=== PATIENT | female | born 1995 | race Two or more races ===

== ENCOUNTER 2018-09-20 10:21 | Emergency (ER) | payer OTHER ==
--- NOTE | 2018-09-20 11:19 | XRAY Report ---
Reason: Trauma Procedure Date: 09/20/2018 Accession Number: [id number] / [id number] Procedure: XR - Wrist 4 View LT CPT Code: FULL RESULT: EXAM: LEFT WRIST RADIOGRAPHY EXAM DATE: 09/20/2018 11:02 AM. CLINICAL HISTORY: Trauma., Pain, deformity COMPARISON: None. TECHNIQUE: 5 views. FINDINGS: Comminuted intra-articular distal left radial fracture with dorsal angulation and overriding of the distal fracture fragment. Ulna and navicular appear grossly intact. IMPRESSION: Comminuted displaced intra-articular distal left radial fracture RADIA
--- NOTE | 2018-09-20 11:28 | ED Physician Documentation ---
PD HPI UPPER EXT INJURY - Stated complaint Stated Complaint: L WRIST INJ - Chief complaint Chief Complaint: Trauma Ext - History obtained from History obtained from: Patient, Family - History of Present Illness Location: Left, Wrist Type of injury: Fall Where injury occurred: Home Timing - onset: Today Timing - duration: Minutes Timing - details: Abrupt onset, Still present Improved by: Rest, Immobilization Associated symptoms: Swelling. No: Weakness, Numbness Contributing factors: No: Anticoagulated Similar symptoms before: Has not had sx before Recently seen: Not recently seen - Additonal information Additional information: 22-year-old female slipped and fell on the snow today landing on her outstretc hed left wrist. She has a deformity to her wrist consistent with a fracture. She did not otherwise injure herself in the fall. She has not had a fracture previously. Review of Systems Constitutional: denies: Fever Eyes: denies: Decreased vision Ears: denies: Ear pain Nose: denies: Congestion Respiratory: denies: Cough GI: denies: Vomiting Musculoskeletal: reports: Extremity pain, Joint pain, Joint swelling. denies: Neck pain, Back pain Neurologic: denies: Generalized weakness, Focal weakness, Numbness PD PAST MEDICAL HISTORY - Past Medical History Past Medical History: No - Present Medications Home Medications: Ambulatory Orders Medication Instructions Recorded Confirmed Hydrocodone/Acetaminophen 1 - 2 each PO Q6H PRN #14 tablet 09/20/18 [Hydrocodon-Acetaminophen 5-325] - Allergies Allergies/Adverse Reactions: Allergies Allergy/AdvReac Type Severity Reaction Status Date / Time No Known Drug Allergies Allergy Verified 09/20/18 10:33 - Social History Does the pt smoke?: No Smoking Status: Never smoker Does the pt drink ETOH?: No Does the pt have substance abuse?: No - Immunizations Immunizations are current?: Yes - POLST Patient has POLST: No PD ED PE NORMAL - Vitals Vital signs reviewed: Yes (normal ) - General General: Alert and oriented X 3, No acute distress, Well developed/nourished - HEENT HEENT: Atraumatic, PERRL, EOMI - Neck Neck: Supple, no meningeal sign - Respiratory Respiratory: No respiratory distress - Derm Derm: Normal color, Warm and dry, No rash - Extremities Extremities: Other (There is deformity to the left wrist consistent with fracture. There is swelling and the distal n/v is intact. There is a dorsal deflection. ) - Neuro Neuro: Alert and oriented X 3, in home aide 2-12 intact, No motor deficit, No sensory deficit, Normal speech Eye Opening: Spontaneous Motor: Obeys Commands Verbal: Oriented GCS Score: 15 - Psych Psych: Normal mood, Normal affect Results - Vitals Vitals: Vital Signs - 24 hr 09/20/18 09/20/18 09/20/18 10:31 12:54 13:28 Temperature 36.2 C L 36.3 C L Heart Rate 75 71 70 Respiratory 14 11 L 14 Rate Blood Pressure 122/78 121/86 H 118/80 O2 Saturation 100 100 100 Oxygen O2 Source Room air - Labs Labs: Laboratory Tests 09/20/18 12:10 Ur Specific [place] 1.025 Urine HCG, Qual NEGATIVE - Rads (name of study) left wrist Radiology: Prelim report reviewed (Impression: Comminuted displaced intra- articular distal left radial fracture.), EMP read indepedently, See rad report post reduction Radiology: EMP read indepedently (anatomic alignment ) PD MEDICAL DECISION MAKING - ED course Complexity details: reviewed results, re-evaluated patient, considered differential, d/w patient, d/w family ED course: 22-year-old female with a slip and fall on ice has fractured her left wrist and we were fortunate enough today to have our orthopedic surgeon available to do the reduction and placed the patient into a splint. The patient will follow up with him and there was an excellent result from the reduction done with conscious sedation provided by the anesthesiologist. Departure - Departure Disposition: 01 Home, Self Care Clinical Impression: Distal radius fracture, left Qualifiers: Encounter type: initial encounter Fracture type: closed Fracture morphology: other intra-articular Qualified Code(s): S52.572A - Other intraarticular fracture of lower end of left radius, initial encounter for closed fracture Condition: Stable Instructions: ED Fx Wrist General Follow-Up: [facility] [Provider Group] Prescriptions: Hydrocodone/Acetaminophen [Hydrocodon-Acetaminophen 5-325] 1 - 2 each PO Q6H PRN #14 tablet PRN Reason: pain Forms: Activity restrictions Discharge Date/Time: 09/20/18 13:34
[2018-09-20] MEDS ORDERED: HYDROmorphone 1 MG/ML CARPUJECT IVP STA (11:37)
--- NOTE | 2018-09-20 12:10 | ANESTHESIA ---
Pre-Anesthesia VS, & Labs - NPO Last Food Intake: full breakfast at 0700 <Enrique Orona P - Last Filed: 09/20/18 12:08> - Is Patient ?: No <Sydney Howell - Last Filed: 09/20/18 12:30> - Diagnosis fx L wrist (Enrique Orona P) fx L wrist (Sydney Howell) - Procedure L closed reduction wrist (Enrique Orona P) L closed reduction wrist (Sydney Howell) Vital Signs: Temp Pulse Resp BP Pulse Ox 36.2 C L 75 14 122/78 100 09/20/18 10:31 09/20/18 10:31 09/20/18 10:31 09/20/18 10:31 09/20/18 10:31 Height 5 ft 2 in Weight (kg) 63.503 kg Body Mass Index 25.6 Home Medications and Allergies <Enrique Orona P - Last Filed: 09/20/18 12:08> <Sydney Howell E - Last Filed: 09/20/18 12:30> Allergies/Adverse Reactions: Allergies Allergy/AdvReac Type Severity Reaction Status Date / Time No Known Drug Allergies Allergy Verified 09/20/18 10:33 Anes History & Medical History - Anesthetic History Anesthesia Complications: reports: No previous complications Family history of Anesthesia Complications: Denies Family history of Malignant Hyperthermia: Denies - Medical History Musculoskeletal: reports: Other (fx L wrist) Smoking Status: Never smoker <Enrique Orona P - Last Filed: 09/20/18 12:08> - Anesthetic History Anesthesia Complications: reports: No previous complications <Sydnye Howell E - Last Filed: 09/20/18 12:30> Exam General: Alert, Oriented x3, Cooperative Dental: WNL Mouth Openin Fingerbreadth Neck Mobility: Normal Mallampati classification: II Thyromental Distance: 4-6 cm Respiratory: Lungs clear, Normal breath sounds Cardiovascular: Regular rate Neurological: Normal speech Mental/Cognitive Status: Alert/Oriented X3, Normal for patient <Enrique Orona P - Last Filed: 09/20/18 12:08> General: Alert, Oriented x3 Mouth Openin Fingerbreadth Mallampati classification: II Thyromental Distance: 4-6 cm Respiratory: Lungs clear <Sydney Howell E - Last Filed: 09/20/18 12:30> Plan Anesthesia Type: MAC Regional Block: Per Surgeon's request for Post Op pain control Consent for Procedure(s) Verified and Reviewed: Yes Code Status: Attempt Resuscitation ASA classification: 2-Mild systemic disease Is this case an emergency?: Yes <Enrique Orona - Last Filed: 09/20/18 12:08> Anesthesia Type: MAC Consent for Procedure(s) Verified and Reviewed: Yes Code Status: Attempt Resuscitation ASA classification: 1-Healthy patient Is this case an emergency?: Yes <Sydney Howell - Last Filed: 09/20/18 12:30>
[2018-09-20 12:24] LABS: HCG UR QUAL NEGATIVE
[2018-09-20] MEDS ORDERED: PROPOFOL 200 MG/20 ML VIAL IVP ONE (12:30)
[2018-09-20] MEDS ORDERED: KETAMINE 500 MG/10 ML VIAL IVP ONE (12:30)
--- NOTE | 2018-09-20 13:17 | XRAY Report ---
Reason: post reduction Procedure Date: 09/20/2018 Accession Number: [id number] / [id number] Procedure: XR - Wrist 2 View LT CPT Code: FULL RESULT: EXAM: LEFT WRIST RADIOGRAPHY EXAM DATE: 09/20/2018 12:53 PM. CLINICAL HISTORY: Post reduction. COMPARISON: WRIST 4 VIEW LT 09/20/2018 10:51 AM. TECHNIQUE: 2 views. FINDINGS: Bones: Significant impaired alignment of the distal radial intra-articular comminuted fracture post reduction, now near-anatomic. Joints: No subluxations. Soft Tissues: Persistent soft tissue swelling at the wrist. IMPRESSION: Significantly improved alignment of the comminuted, intra-articular distal radial fracture post reduction. RADIA
[2018-09-20 13:30] VITALS: BP 118/80
--- NOTE | 2018-09-20 13:47 | CONSULTATION NOTE ---
DATE OF SERVICE: 09/20/2018 Physician: Jorge Alberto Palemr MD REQUESTING PHYSICIAN: Kalpesh Sethi MD. REASON FOR CONSULTATION: Left distal radial fracture. HISTORY OF PRESENT ILLNESS: The patient is a 22-year-old right-hand dominant female who fell onto her left wrist at the base today, causing a displaced angulated closed radial fracture. She was evaluated in the emergency room, and it was felt appropriate to perform a closed reduction. PHYSICAL EXAMINATION: Her examination showed swelling of the wrist, intact neurovascular function. No open wounds. Minimal tenderness at the distal ulna, and nontender elbow. X-RAYS: X-rays revealed a displaced and angulated fracture with slight intraarticular component. RECOMMENDATION/PLAN: Plan was for closed reduction. DESCRIPTION OF PROCEDURE: Sydney Howell from anesthesia was asked to perform conscious sedation. The patient had a negative urine test prior to this. She underwent conscious sedation, and her left wrist was manipulated into a closed reduction position, with re-creation of extension deformity and then flexion and ulnar deviation. Patient was appropriately splinted, and appeared well aligned. A splint was applied. This was a sugar-tong splint well padded, looping around the elbow and with reduction held with 3-point fixation in the splint. Afterwards, the patient was sent for x-rays. The plan on discharge was for the patient to go home and ice and elevate and move fingers. She was to have pain pills as needed. She was to follow up in [facility] within one week for possible casting. TD: 09/20/2018 12:52 MTDD
== END 2018-09-20 13:34 | disposition home or self-care (01) ==
LOC: ED 10:21
DX: S52.572A Other intraarticular fracture of lower end of left radius, initial encounter for closed fracture (principal); W00.0XXA Fall on same level due to ice and snow, initial encounter; Y92.009 Unspecified place in unspecified non-institutional (private) residence as the place of occurrence of the external cause
CPT/HCPCS: 25605; 73100; 73110; 81025; 96374; 99156; 99283; 99284; J1170